=== PATIENT | female | born 1970 | race Caucasian/White ===

== ENCOUNTER 2025-03-09 14:52 | Emergency (ER) | payer OTHER ==
[~2025-03-09] VITALS: Ht 152.4 cm; Wt 63.0 kg
[2025-03-09 14:53] VITALS: O2SAT 98
[2025-03-09 14:59] VITALS: BP 120/51; PULSE 77; RESP 16; TEMP 37.3; O2SAT 98
[2025-03-09 16:06] LABS: BASOPHILS % 0.9 % (0.0-2.0); DIFFERENTIAL COMMENT 0; EOSINOPHILS % 3.8 % (0.0-5.0); HEMATOCRIT. 29.8 % (36.0-48.0); HEMOGLOBIN. 9.9 g/dL (12.0-16.0); LYMPHOCYTES % 27.6 % (20.0-50.0); MEAN CORPUSCULAR HEMOGLOBIN 26.1 pg (28.0-32.0); MEAN CORPUSCULAR HGB CONC 33.1 g/dL (31.0-37.0); MEAN CORPUSCULAR VOLUME 78.9 fL (81.0-99.0); MEAN PLATELET VOLUME 7.4 fl (7.4-10.4); MONOCYTES % 7.4 % (2.0-8.0); NEUTROPHILS % 60.3 % (40.0-76.0); PLATELET 462 x1000/uL (130-400); RED BLOOD CELL COUNT 3.78 mill/uL (4.2-5.4); RED CELL DISTRIBUTION WIDTH 16.9 % (11.6-14.6)
[2025-03-09 16:15] LABS: CHLORIDE 105 mEq/L (98-107); POTASSIUM 4.3 mEq/L (3.5-5.1); SODIUM 138 mEq/L (136-145)
[2025-03-09 16:16] LABS: CARBON DIOXIDE 28 mEq/L (21-32)
[2025-03-09 16:17] LABS: CALCIUM 9.3 mg/dL (8.7-10.4)
[2025-03-09 16:18] LABS: PARTIAL THROMBOPLASTIN TIME 27.1 sec (23.4-31.0); PROTHROMBIN TIME 10.3 sec (9.6-11.0)
[2025-03-09 16:21] LABS: CREATININE 0.8 mg/dL (0.6-1.0); GLUCOSE 206 mg/dL (70-105)
[2025-03-09 16:22] LABS: UREA NITROGEN BLOOD 19 mg/dL (9-23)
[2025-03-09 16:23] LABS: ALANINE AMINOTRANSFERASE 12 IU/L (10-49); ALBUMIN 4.4 g/dL (3.2-4.8); ASPARTATE AMINOTRANSFERASE 14 IU/L (<34)
[2025-03-09 16:24] LABS: BILIRUBIN DIRECT 0.1 mg/dL (<=3.0); BILIRUBIN TOTAL 0.5 mg/dL (0.1-1.0); PROTEIN TOTAL 7.5 g/dL (6.0-8.3)
[2025-03-09] MEDS ORDERED: CEPH500C2 MT (17:17)
== END 2025-03-09 17:24 | disposition home or self-care (01) ==
LOC: ER 14:52
DX: L03.116 Cellulitis of left lower limb (principal); E11.9 Type 2 diabetes mellitus without complications; Z79.899 Other long term (current) drug therapy
CPT/HCPCS: 36415; 80048; 80076; 85025; 99283